=== PATIENT | female | born 1980 | race African-American/Black ===

== ENCOUNTER 2017-03-17 11:32 | Inpatient (IN) | payer OTHER ==
[~2017-03-17] VITALS: Ht 167.6 cm; Wt 126.5 kg
[~2017-03-17 11:32] MED LIST: HYDROCHLOROTHIA25 MG PO
[2017-03-17 12:40] LABS: HEMATOCRIT 50.5 % (36.0-46.0); MCH 26.8 PG (29.0-34.0); MCHC 33.1 G/DL (30.0-36.0); MCV 81.2 FL (83-99); MEAN PLAT.VOLUME 10.1 uM^3 (9.5-12.4); PLATELET COUNT 311 K/uL (156-360); RBC DIS.WIDTH-CV 13.5 % (11.8-14.6); RBC DIS.WIDTH-SD 39.2 % (39-53); RED BLOOD COUNT 6.22 M/uL (3.80-5.20); WHITE BLOOD COUNT 11.3 K/uL (4.1-10.2)
[2017-03-17 12:52] LABS: CHLORIDE 102 mEq/L (99-109); POTASSIUM 3.6 mEq/L (3.7-5.4); SODIUM 138 mEq/L (136-147)
[2017-03-17 12:53] LABS: GLUCOSE 128 mg/dL (70-99)
[2017-03-17 12:55] LABS: ANION GAP 16 MEQ/L (2-14)
[2017-03-17 12:57] LABS: GFR ESTIMATE (CALCULATED) > 59 mL/min/
[2017-03-17 12:58] LABS: UREA NITROGEN (BUN) 18 mg/dL (9-23)
[2017-03-17 13:05] LABS: TOTAL BILIRUBIN 0.7 mg/dL (0.0-1.0)
[2017-03-17 13:06] LABS: ALKALINE PHOSPHATASE 77 IU/L (3-129)
[2017-03-17 13:09] LABS: DIRECT BILIRUBIN 0.3 mg/dL (0.0-0.3)
[2017-03-17 13:10] LABS: LIPASE 9 U/L (1.0-51.0)
[2017-03-17 13:11] LABS: QUANTITATIVE HCG < 4.0 MIU/ML
[2017-03-17 13:13] LABS: TROP-I INTERPRETATION NEGATIVE; TROPONIN-I < 0.01 ng/mL (0.0-0.30)
[2017-03-17 14:59] LABS: ADD MIUA? YES; BILIRUBIN NEGATIVE; BLOOD SMALL; COLOR YELLOW ((YELLOW)); GLUCOSE (STRIP) NEGATIVE; KETONES 20; LEUKOCYTES NEGATIVE; NITRITE NEGATIVE; PROTEIN (STRIP) 30; SPECIFIC GRAVITY 1.019 (1.000-1.030); UROBILINOGEN 0.2 MG/DL (0.2-1.0)
[2017-03-17 15:03] LABS: BACTERIA RARE /HPF; EPITHELIAL CELLS RARE /HPF; HYALINE CASTS 0-5 /LPF; MUCUS TRACE /LPF; UCUL ADDED? NO; UNCLASSIFIED CASTS 0-5 /LPF; WHITE BLOOD CELLS 0-5 /HPF (0-5)
[2017-03-17 17:42] LABS: HDL CHOLESTEROL 42 MG/DL (Desirable>=50); LDL CHOLESTEROL 204 mg/dL (Desirable<100); NON-HDL CHOLESTEROL 233 mg/dL (Desirable<160); TOTAL CHOLESTEROL 275 mg/dL (Desirable<200); TRIGLYCERIDES 144 MG/DL (Normal: <150)
[2017-03-17 18:51] LABS: TROP-I INTERPRETATION NEGATIVE; TROPONIN-I < 0.01 ng/mL (0.0-0.30)
[2017-03-17 19:12] LABS: Estimated Average Glucose 100 mg/dL (70-123); HEMOGLOBIN A1c (GLYCOHEMOGLOB) 5.1 % HGB (Below 5.7)
[2017-03-17 20:30] VITALS: BP 184/90
[2017-03-17 20:33] VITALS: BP 184/90
[2017-03-17 22:09] VITALS: BP 175/83
[2017-03-17 23:42] VITALS: BP 144/88
[2017-03-18 01:03] LABS: TROP-I INTERPRETATION NEGATIVE; TROPONIN-I < 0.01 ng/mL (0.0-0.30)
[2017-03-18 04:00] VITALS: BP 149/88
[2017-03-18 06:20] LABS: HEMATOCRIT 41.6 % (36.0-46.0); MCH 26.6 PG (29.0-34.0); MCHC 32.2 G/DL (30.0-36.0); MCV 82.5 FL (83-99); MEAN PLAT.VOLUME 9.9 uM^3 (9.5-12.4); PLATELET COUNT 267 K/uL (156-360); RBC DIS.WIDTH-CV 13.5 % (11.8-14.6); RBC DIS.WIDTH-SD 40.2 % (39-53)
[2017-03-18 06:26] LABS: RED BLOOD COUNT 5.04 M/uL (3.80-5.20)
[2017-03-18 06:31] LABS: ANION GAP 9 MEQ/L (2-14); CHLORIDE 102 MEQ/L (99-109); GFR ESTIMATE (CALCULATED) > 59 mL/min/; POTASSIUM 3.3 MEQ/L (3.7-5.4); SAMPLE HEMOLYSIS CHECK 0; SAMPLE ICTERIC CHECK 0; SAMPLE LIPEMIA CHECK 0; SODIUM 135 MEQ/L (136-147); UREA NITROGEN (BUN) 13 mg/dL (9-23)
[2017-03-18 06:33] LABS: GLUCOSE 92 mg/dL (70-99)
[2017-03-18 08:56] VITALS: BP 165/91
[2017-03-18 12:17] VITALS: BP 189/106
[2017-03-18 13:53] VITALS: BP 171/119
[2017-03-18 17:16] VITALS: BP 148/73
[2017-03-18 20:23] VITALS: BP 141/90
[2017-03-19] VITALS (7 sets, daily range): BP systolic 144–184; BP diastolic 73–99
[2017-03-19 07:20] LABS: BASOPHIL COUNT 0.1 K/uL (0-0.1); EOSINOPHIL COUNT 0.2 K/uL (0-0.3); HEMATOCRIT 43.2 % (36.0-46.0); IMMATURE GRANULOCYTE (%) 0.6 % (0.0-0.7); IMMATURE GRANULOCYTE COUNT 0.1 K/uL; INSTRUMENT ABS NEUTROPHIL CT 4.4 K/uL; LYMPHOCYTE COUNT 3.7 K/uL (1.0-2.8); MCH 26.7 PG (29.0-34.0); MCHC 32.2 G/DL (30.0-36.0); MCV 83.1 FL (83-99); MEAN PLAT.VOLUME 9.8 uM^3 (9.5-12.4); MONOCYTE (%) 8.7 % (3-12); MONOCYTE COUNT 0.8 K/uL (0-0.8); NEUTROPHIL (%) 47.7 % (45-76); NEUTROPHIL COUNT 4.4 K/uL (1.8-6.4); PLATELET COUNT 252 K/uL (156-360); RBC DIS.WIDTH-CV 13.4 % (11.8-14.6); RBC DIS.WIDTH-SD 40.6 % (39-53); WHITE BLOOD COUNT 9.1 K/uL (4.1-10.2)
[2017-03-19 07:32] LABS: ANION GAP 8 MEQ/L (2-14); CHLORIDE 102 MEQ/L (99-109); GFR ESTIMATE (CALCULATED) > 59 mL/min/; GLUCOSE 91 mg/dL (70-99); POTASSIUM 3.4 MEQ/L (3.7-5.4); SAMPLE HEMOLYSIS CHECK 0; SAMPLE ICTERIC CHECK 0; SAMPLE LIPEMIA CHECK 0; SODIUM 139 MEQ/L (136-147); UREA NITROGEN (BUN) 12 mg/dL (9-23)
[2017-03-19] MEDS ORDERED: HYDROCHLOROTHIA25 MG PO (17:15)
[2017-03-19] MEDS ORDERED: LISINOPRIL10 MG PO (17:15)
[2017-03-19] MEDS ORDERED: AMLODIPINE BESY10 MG PO (17:15)
== END 2017-03-19 17:51 | disposition home or self-care (01) | DRG 305 ==
LOC: EME 11:32 → 4EAST 16:19 → EDOF 16:19 → 4EAST 19:53
PROVIDERS: Nurse Practitioner Family; Student in an Organized Health Care Education/Training Program
DX: I16.0 Hypertensive urgency (principal); Z68.41 Body mass index [BMI] 40.0-44.9, adult; E87.6 Hypokalemia; E66.01 Morbid (severe) obesity due to excess calories; R73.9 Hyperglycemia, unspecified; R11.2 Nausea with vomiting, unspecified; F17.210 Nicotine dependence, cigarettes, uncomplicated; Z91.14 Patient's other noncompliance with medication regimen; Z91.120 Patient's intentional underdosing of medication regimen due to financial hardship; Z83.3 Family history of diabetes mellitus; Z82.49 Family history of ischemic heart disease and other diseases of the circulatory system
CPT/HCPCS: 70450; 71020; 80048; 80061; 80076; 81003; 82088 90; 83036; 83690; 83880; 84244 90; 84484; 84702; 85025; 85027; 93005; 93306; 99281; 99285; J0360; J1650; J2405; J2765; J7030